=== PATIENT | female | born 1995 | race Caucasian/White ===

== ENCOUNTER 2017-12-15 23:05 | Emergency (ER) | payer SELFPAY ==
[~2017-12-15] VITALS: Ht 165.1 cm; Wt 90.5 kg
[~2017-12-15 23:05] MED LIST: BENA25TA8 PO; PRED20 PO
[2017-12-15 23:10] VITALS: BP 148/77; PULSE 100; RESP 16; TEMP 98.4; O2SAT 98
--- NOTE | 2017-12-15 23:19 | PD ---
HPI Chief Complaint: Laceration/Skin Injury Time Seen by Provider: 23:14 Travel History International Travel<30 days: No Contact w/Intl Traveler<30days: No Traveled to known affect area: No History of Present Illness HPI 22-year-old female presents for evaluation of a laceration to the left forearm. She reports that prior to arrival she was attempting to jump a metal fence and a piece of metal cut her left forearm. She has laceration left forearm which is painful, aching, worse with palpation. Denies any numbness or tingling or weakness distal to the injury site. Her last tetanus vaccination is unknown. No other complaints at this time. [facility] Past Medical History Medical History: Denies Significant Hx Tetanus Vaccination: Unknown Influenza Vaccination: No ?: Not : 1 Para: 1 Past Surgical History Section: Yes Social History Alcohol Use: No Tobacco Use: No Substance Use: No Allergies-Medications (Allergen,Severity, Reaction): Coded Allergies: sulfamethoxazole (Unverified Allergy, Intermediate, rash, 03/07/17) trimethoprim (Unverified Allergy, Intermediate, rash, 03/07/17) Reported Meds & Prescriptions Reported Meds & Active Scripts Active No Active Prescriptions or Reported Medications Review of Systems General / Constitutional: No: Fever, Chills Musculoskeletal: Positive: Pain, No: Limited ROM Skin: Positive Other (Positive for laceration, bleeding) Physical Exam Narrative GENERAL: Well-developed well-nourished female no acute distress SKIN: Warm and dry. 2 cm laceration to the bulbar medial proximal aspect of left forearm. There is no bleeding. HEAD: Atraumatic. Normocephalic. CARDIOVASCULAR: Regular rate and rhythm. No murmur appreciated. RESPIRATORY: No accessory muscle use. Clear to auscultation. Breath sounds equal bilaterally. GASTROINTESTINAL: Abdomen soft, non-tender, nondistended. Hepatic and splenic margins not palpable. MUSCULOSKELETAL: Skin as noted above. The patient maintains full range of motion and full strength distal to the injury site in the median radial and ulnar nerve distributions. Full sensation is preserved in the median radial ulnar nerve lesions. Capillary refill is less than 2 seconds all digits left hand. 2+ radial pulse. NEUROLOGICAL: Awake and alert. No obvious cranial nerve deficits. Motor grossly within normal limits. Normal speech. Data Data Last Documented VS Vital Signs Date Time Temp Pulse Resp B/P (MAP) Pulse Ox O2 Delivery O2 Flow Rate FiO2 12/15/17 23:10 98.4 100 16 148/77 (100) 98 Room Air Orders Orders Lidocai-Epi 1%-1:100,000 Inj (Xylocaine- (12/15/17 23:30) Tetanus/Diphtheria Tox Adult (Tetanus/Di (12/15/17 23:30) Ed Discharge Order (12/15/17 23:59) MDM Medical Decision Making Medical Screen Exam Complete: Yes Emergency Medical Condition: Yes Medical Record Reviewed: Yes Differential Diagnosis Cutaneous laceration, tendon laceration, muscle laceration, open fracture Narrative Course Tetanus status updated. The laceration will be repaired with sutures, she verbally consents. Procedures Procedure Narrative LACERATION LOCATION: Left forearm LENGTH: 2 cm NUMBER OF STITCHES/AMAYA: 5 REPAIR: The area of the laceration was prepped with Betadine and sterilely draped. The laceration was infiltrated with 1% lidocaine with epinephrine. The wound was copiously irrigated and explored without evidence of foreign body , tendon injury or neurovascular injury. The wound was closed using [4-0 nylon simple interrupted. This was a single layer repair. A sterile dressing was applied. The patient was advised to keep the dressing clean and dry. Patient tolerated the procedure well. Diagnosis Primary Impression: Forearm laceration Additional Instructions: Wash the wound twice a day with soap and water and apply antibiotic cream. Return in 10-14 days for suture removal. Med/Other Pt SpecificInfo: Wound Care Scripts No Active Prescriptions or Reported Meds Disposition: 01 DISCHARGE HOME Condition: Stable Mumtaz Strong December 15, 2017 23:19
[2017-12-15] MEDS ORDERED: TETANUS/DIPHTHERIA TOXOID ADULT 0.5 ML VIAL IM ONE (23:30)
[2017-12-15] MEDS ORDERED: LIDOCAINE 1%/EPINEPHrine 1:100,000 SOLN 20 ML VIAL INFIL ONE (23:30)
== END 2017-12-16 00:19 | disposition home or self-care (01) ==
LOC: NEPD 23:05
DX: S51.812A Laceration without foreign body of left forearm, initial encounter (principal); W26.8XXA Contact with other sharp object(s), not elsewhere classified, initial encounter; Y93.39 Activity, other involving climbing, rappelling and jumping off; Z23 Encounter for immunization
CPT/HCPCS: 12001; 90471; 90714